=== PATIENT | female | born 1990 | race Two or more races ===

== ENCOUNTER → 2025-05-15 | Outpatient (CLI) | payer OTHER | END | disposition home or self-care (01) | LOC: PRENATAL 11:48 | PROVIDERS: ATTEND Obstetrics & Gynecology | DX: Z76.1 Encounter for health supervision and care of foundling (principal) ==

== ENCOUNTER → 2025-05-23 11:38 | Outpatient (CLI) | payer OTHER | END | disposition home or self-care (01) | LOC: PRENATAL 11:38 | PROVIDERS: ATTEND Obstetrics & Gynecology Maternal & Fetal Medicine | DX: O36.80X0 Pregnancy with inconclusive fetal viability, not applicable or unspecified (principal); Z36.82 Encounter for antenatal screening for nuchal translucency; Z14.8 Genetic carrier of other disease; O24.319 Unspecified pre-existing diabetes mellitus in pregnancy, unspecified trimester; Z3A.12 12 weeks gestation of pregnancy ==